=== PATIENT | female | born 1960 | race American Indian/Alaskan Native ===

== ENCOUNTER 2017-09-17 17:00 | Emergency (ER) | payer SELFPAY ==
[2017-09-17 18:14] LABS: Hemoglobin 13.1 gm/dl (10.1-14.3); Mean Corpuscular HGB Conc 34 % (30-34); Mean Corpuscular Hemoglobin 32 pg (28-32); Mean Corpuscular Volume 96 fl (79-97); Platelet Count 225 K/mm3 (140-440); Red Blood Count 4.04 M/mm3 (3.65-5.03); Red Cell Distribution Width 14.3 % (13.2-15.2)
[2017-09-17 18:41] LABS: Alanine Aminotransferase 10 units/L (7-56); Albumin 4.2 g/dL (3.9-5); BUN/Creatinine Ratio 14; Blood Urea Nitrogen 7 mg/dL (7-17); Hemolysis Index 4
--- NOTE | 2017-09-17 19:48 | Cat Scan Report ---
FINAL REPORT EXAM: CT HEAD/BRAIN WO CON HISTORY: htn/severe h/a's and dizziness TECHNIQUE: 2.5 millimeter axial images from the skullbase to the vertex. Comparison: None FINDINGS: There is no CT evidence of an acute intracranial process and no evidence of intracranial hemorrhage or mass effect. The ventricles are normal size. There is atherosclerotic vascular calcification of the internal carotid arteries bilaterally and left vertebral artery at the skullbase. The sella is enlarged and appears to be CSF filled consistent with the appearance of an "empty sella". The visualized portions of the orbits, paranasal and mastoid sinuses are unremarkable. The bony structures are unremarkable in appearance. IMPRESSION: 1. No CT evidence of an acute intracranial process and no evidence of intracranial hemorrhage or mass effect. If there is a clinical suspicion of an acute intracranial process, MRI brain may be helpful. 2. Atherosclerotic vascular calcification internal carotid arteries bilaterally and left vertebral artery at the skullbase. 3. Incidental note is made of the appearance of an "empty sella".
[2017-09-17] MEDS ORDERED: MOTRIN PO ONE (23:10)
[2017-09-17] MEDS ORDERED: TYLENOL PO ONE (23:10)
[2017-09-17] MEDS ORDERED: NORVASC PO ONE (23:11)
[2017-09-17] MEDS ORDERED: COMPAZINE IV ONE (23:24)
[2017-09-17] MEDS ORDERED: TORADOL IV ONE (23:24)
[2017-09-17] MEDS ORDERED: NACL 0.9% 1000 ML 1,000 ML IV ONE (23:24)
--- NOTE | 2017-09-18 00:48 | Emergency Department Report ---
ED General Adult HPI - General Chief complaint: High BP Stated complaint: HBP/PAIN Time Seen by Provider: 09/17/17 23:10 Source: patient Mode of arrival: Ambulatory Limitations: No Limitations - History of Present Illness Severity scale (0 -10): 10 - Related Data Previous Rx's Medication Instructions Recorded Last Taken Type amLODIPine [Norvasc] 5 mg PO DAILY #30 tab 09/18/17 Unknown Rx Allergies Allergy/AdvReac Type Severity Reaction Status Date / Time No Known Allergies Allergy Verified 09/17/17 23:26 ED Review of Systems ROS: Stated complaint: HBP/PAIN Other details as noted in HPI ED Past Medical Hx - Past Medical History Previous Medical History?: No - Surgical History Past Surgical History?: No - Social History Smoking Status: Never Smoker Substance Use Type: None - Medications Home Medications: Home Medications Medication Instructions Recorded Confirmed Last Taken Type amLODIPine [Norvasc] 5 mg PO DAILY #30 tab 09/18/17 Unknown Rx ED Physical Exam - General Limitations: No Limitations ED Course Vital Signs 09/17/17 09/17/17 09/18/17 17:44 20:54 00:55 Temperature 99 F 100.3 F H Pulse Rate 103 H 93 H 90 Respiratory 20 18 Rate Blood Pressure 218/108 183/93 201/107 O2 Sat by Pulse 99 96 Oximetry ED Medical Decision Making - Lab Data Result diagrams: 09/17/17 18:02 09/17/17 18:02 - Radiology Data Radiology results: report reviewed, image reviewed - Medical Decision Making 57 yo female with no sig pmhx that p/w HTN and H/a. VS significant for BP of 210/108. NO focal neuro symptoms. CT Head/angio shows no acute pathology. Pt was given a h/a cocktail and amlodipine. Moroni improved on re-evaluation. Pt developed a low grade temp of 100.3 while in the ER. Pt is showing no evidence of meningismus. It is unclear at this time, the source of her temperature. She will be discharged with amlodipine and pcp f/u. - Differential Diagnosis ICH, hTN urgency, bening hypertension, acs, cva Critical care attestation.: If time is entered above; I have spent that time in minutes in the direct care of this critically ill patient, excluding procedure time. ED Disposition Clinical Impression: Hypertension, Headache Disposition: DC- TO HOME OR SELFCARE Is pt being admited?: No Does the pt Need Aspirin: No Condition: Stable Instructions: Hypertension (ED) Additional Instructions: Take your blood pressure meds as prescribed. Follow up with the [facility] for further management of your hypertension. Prescriptions: amLODIPine [Norvasc] 5 mg PO DAILY #30 tab Referrals: PRIMARY CARE, [Primary Care Provider] - 3-5 Days [facility] [Outside] - 3-5 Days
--- NOTE | 2017-09-18 01:34 | Cat Scan Report ---
FINAL REPORT EXAM: CT ANGIO HEAD HISTORY: sudden onset h/a COMPARISON: CT of the head from yesterday. TECHNIQUE: Contiguous axial images were obtained. Additional sagittal and coronal reformatted images were obtained. Administration of IV contrast given per institution protocol. Images submitted for interpretation. 100 cc Omnipaque 350. Max intensity projection images. FINDINGS: Mild calcified plaque along the cavernous and supraclinoid portions of the internal carotid arteries. No significant associated stenosis. Petrous segments are widely patent. A1 segments are symmetric in caliber. There is a tiny anterior communicating artery. Symmetric opacification of branching of the anterior, middle, posterior cerebral arteries. Tiny left posterior communicating artery is present. Intracranial portions the vertebral arteries and basilar artery patent. Mild focal calcified plaque along the proximal left vertebral artery without significant associated stenosis. No early draining vein. No area of abnormal hypervascular enhancement. Gross normal opacification major dural venous sinuses. Limited evaluation of brain parenchyma due to CT angiography algorithm. No large area of infarct or intracranial hemorrhage. IMPRESSION: Mild calcified plaque within the left vertebral artery and carotid siphons. No significant associated stenosis. Otherwise, negative CTA of the head.
[2017-09-18 03:20] VITALS: BP 189/99
== END 2017-09-18 02:40 | disposition home or self-care (01) ==
LOC: ED 17:00
DX: I10 Essential (primary) hypertension (principal)
CPT/HCPCS: 36415; 70450; 70496; 80053; 85027; 96374; 96375; 99284; J0780; J1885; J7030; Q9967

== ENCOUNTER 2019-04-12 21:16 | Emergency (ER) | payer SELFPAY ==
--- NOTE | 2019-04-12 21:27 | Event Note ---
ED Screening Note Date of service: 04/12/19 Time: 21:26 ED Screening Note: Pt complains of lower abdominal pain x 1 month worsens with eating denies hx of abdominal surgeries states abnormal vaginal bleeding This initial assessment/diagnostic orders/clinical plan/treatment(s) is/are subject to change based on patients health status, clinical progression and re- assessment by fellow clinical providers in the ED. Further treatment and workup at subsequent clinical providers discretion. Patient/guardian urged not to elope from the ED as their condition may be serious if not clinically assessed and managed. Initial orders include: labs US
[2019-04-12 22:06] LABS: Basophils # (Auto) 0.1 K/mm3 (0.0-0.1); Basophils % (Auto) 0.8 % (0.0-1.8); Eosinophils % (Auto) 0.4 % (0.0-4.3); Hematocrit 32.6 % (30.3-42.9); Hemoglobin 10.5 gm/dl (10.1-14.3); Lymphocytes # (Auto) 1.5 K/mm3 (1.2-5.4); Lymphocytes % (Auto) 20.3 % (13.4-35.0); Mean Corpuscular HGB Conc 32 % (30-34); Mean Corpuscular Volume 86 fl (79-97); Monocytes # (Auto) 0.8 K/mm3 (0.0-0.8); Monocytes % (Auto) 11.5 % (0.0-7.3); Platelet Count 453 K/mm3 (140-440); Red Blood Count 3.78 M/mm3 (3.65-5.03); Red Cell Distribution Width 16.6 % (13.2-15.2)
[2019-04-12 22:20] LABS: BUN/Creatinine Ratio 16; Blood Urea Nitrogen 11 mg/dL (7-17); Calcium 8.9 mg/dL (8.4-10.2); Hemolysis Index 4
[2019-04-12 22:23] LABS: Alanine Aminotransferase 10 units/L (7-56); Albumin 3.6 g/dL (3.9-5)
[2019-04-12 22:24] LABS: Bilirubin,Direct < 0.2 mg/dL (0-0.2)
--- NOTE | 2019-04-12 22:54 | Emergency Department Report ---
ED Abdominal Pain HPI - General Chief Complaint: Abdominal Pain Stated Complaint: ABD PAIN/WEAKNESS Time Seen by Provider: 04/12/19 21:25 Source: patient Mode of arrival: Ambulatory Limitations: No Limitations - History of Present Illness Initial Comments: Patient is a 58-year-old female presents emergency room with complaints of lower abdominal pain that began a month ago. She has associated decreased appetite and vaginal spotting for the last month. She states she had a normal bowel movement yesterday. She denies any nausea, vomiting, diarrhea, hematochezia, melena, urinary symptoms. She states that she has had a history of fibroids in the past. She has a past medical history of hypertension but did not take her medication today. She denies any allergies to medications. - Related Data Previous Rx's Medication Instructions Recorded Last Taken Type amLODIPine 5 mg PO DAILY #30 tab 09/18/17 Unknown Rx Oxycodone HCl/Acetaminophen 1 each PO Q6HR PRN #12 tablet 04/13/19 Unknown Rx [Percocet 7.5/325 mg] Allergies Allergy/AdvReac Type Severity Reaction Status Date / Time No Known Allergies Allergy Verified 09/17/17 23:26 ED Review of Systems ROS: Stated complaint: ABD PAIN/WEAKNESS Other details as noted in HPI Comment: All other systems reviewed and negative ED Past Medical Hx - Past Medical History Previous Medical History?: Yes Hx Hypertension: Yes Additional medical history: obesity - Surgical History Past Surgical History?: No - Social History Smoking Status: Never Smoker Substance Use Type: None - Medications Home Medications: Home Medications Medication Instructions Recorded Confirmed Last Taken Type amLODIPine 5 mg PO DAILY #30 tab 09/18/17 Unknown Rx Oxycodone HCl/Acetaminophen 1 each PO Q6HR PRN #12 tablet 04/13/19 Unknown Rx [Percocet 7.5/325 mg] ED Physical Exam - General Limitations: No Limitations General appearance: alert, in no apparent distress - Head Head exam: Present: atraumatic, normocephalic - Eye Eye exam: Present: normal appearance - ENT ENT exam: Present: mucous membranes moist - Respiratory Respiratory exam: Present: normal lung sounds bilaterally. Absent: respiratory distress, wheezes, rales, rhonchi, stridor, chest wall tenderness, accessory muscle use, decreased breath sounds, prolonged expiratory - Cardiovascular Cardiovascular Exam: Present: regular rate, normal rhythm, normal heart sounds. Absent: systolic murmur, diastolic murmur, rubs, gallop - GI/Abdominal GI/Abdominal exam: Present: soft, tenderness (lower), normal bowel sounds, other (protuberant abdomen). Absent: distended, guarding, rebound, rigid - Neurological Exam Neurological exam: Present: alert, oriented X3 - Psychiatric Psychiatric exam: Present: normal affect, normal mood - Skin Skin exam: Present: warm, dry, intact ED Course Vital Signs 04/12/19 04/13/19 21:20 00:54 Temperature 99.2 F Pulse Rate 95 H 96 H Respiratory 18 18 Rate Blood Pressure 173/84 165/76 O2 Sat by Pulse 100 97 Oximetry - Consultations Consultation #1: 04/13/19 00:[address] Sam, FOOD PREPARER regarding pt and imaging studies who recommended outpatient WE[facility] MANAGEMENT ADVISOR referral, no further recommendations at this time ED Medical Decision Making - Lab Data Result diagrams: 04/12/19 21:42 04/12/19 21:42 - Radiology Data Radiology results: report reviewed CT of the abdomen and pelvis with contrast INDICATION: Lower abdominal pain COMPARISON: None FINDINGS: There are multiple basilar lung nodule suspicious for metastases measuring up to 11 mm in diameter. There is minimal right pleural effusion seen as well. There is moderate ascites in the upper abdomen. The liver is normal with no metastatic disease seen. Spleen is normal in attenuation and not enlarged. The pancreas, adrenal glands and right kidney all appear norm al. Low densities in the left kidney are likely cysts. No definite gallbladder or biliary tree abn ormality. No gastric mass is seen. There is a small hiatal hernia. There is moderate retroperitoneal adenopathy in the upper abdomen. There is no definite carcinomatosis. CT of the pelvis shows no evidence of bowel obstruction. Multiple uterine fibroids are seen with the uterus enlarged. There is a large fluid-filled endometrial cavity is seen as well. There are no definite adnexal masses. There is moderate pelvic and inguinal adenopathy seen as well. There is minimal pelvic ascites. No skeletal metastases are seen. There is generalized anasarca of moderate severity. IMPRESSION: Multiple pulmonary nodules with abdominal and pelvic adenopathy as well as abnormal appearing uterus. Findings suggest neoplasm. No acute inflammatory process seen. Automated exposure control was utilized to diminish radiation dose. Signer Name: Robert Talbot MD Signed: 04/13/2019 12:08 AM Workstation Name: [id number] Transcribed By: LAILA Dictated By: Robert Talbot MD Electronically Authenticated By: Robert Talbot MD Signed Date/Time: 04/13/19 0008 DD/ 0001 TD/TT: Transabdominal pelvic ultrasound INDICATION: Vaginal bleeding FINDINGS: Neither ovary is seen. Uterus measures 16 x 11 x 12 cm.. In the anterior fundal uterus there is a partially calcified 6 x 7 cm fibroid. Endometrial stripe is significantly thickened at 6 cm and presumably this represents clot. There is no vascularity in this region. No free fluid is seen. IMPRESSION: 1. Large amount of endometrial cavity clot. 2. The ovaries are not seen. 3. Uterine fibroid. Signer Name: Robert Talbot MD Signed: 04/12/2019 10:58 PM Workstation Name: [id number] Transcribed By: LAILA Dictated By: Robert Talbot MD Electronically Authenticated By: Robert Talbot MD Signed Date/Time: 04/12/192257 DD/ 55 TD/TT: - Medical Decision Making Patient is a 58-year-old female presents emergency room with complaints of lower abdominal pain that began a month ago. She has associated decreased appetite and vaginal spotting for the last month. She states she had a normal bowel movement yesterday. She denies any nausea, vomiting, diarrhea, hematochezia, melena, urinary symptoms. She states that she has had a history of fibroids in the past. She has a past medical history of hypertension but did not take her medication today. She denies any allergies to medications. Vitals with mildly elevated blood pressure secondary to patient not taking her medication. On exam lower abdominal tenderness to palpation, no guarding, no rebound, normal bowel sounds. Labs are stable. H&H is normal. UA without evidence of UTI. pelvic US: 1. Large amount of endometrial cavity clot. 2. The ovaries are not seen. 3. Uterine fibroid. CT abd pelvis with IV contrast: Multiple pulmonary nodules with abdominal and pelvic adenopathy as well as abnormal appearing uterus. Findings suggest neoplasm. No acute inflammatory process seen. spoke to Dr. Sam, FOOD PREPARER regarding pt and imaging studies who recommended outpatient WEALTH MANAGEMENT ADVISOR referral, no further recommendations at this time. Discussed all results with the patient and answered questions. Discussed the importance of follow-up with the patient and the severity if she did not. Patient given prescription for oxycodone. advised pt Please take medication as prescribed as needed. Do not drive or operate heavy machinery while taking pain medication. Please take your CT report to an FOOD PREPARER. It is very important that you follow-up with FOOD PREPARER. Return to the emergency room immediately for any new or worsening symptoms. - Differential Diagnosis fibroids, uterine CA, constipation, UTI, colitis, diverticulitis, mass Critical care attestation.: If time is entered above; I have spent that time in minutes in the direct care of this critically ill patient, excluding procedure time. ED Disposition Clinical Impression: Vaginal bleeding, Decreased appetite, Abnormal ultrasound of uterus, Lymphadenopathy, Pulmonary nodules Abdominal pain Qualifiers: Abdominal location: lower abdomen, unspecified Qualified Code(s): R10.30 - Lower abdominal pain, unspecified Disposition: TO HOME OR SELFCARE Is pt being admited?: No Does the pt Need Aspirin: No Condition: Stable Instructions: Abdominal Pain (ED) Additional Instructions: Please take medication as prescribed as needed. Do not drive or operate heavy machinery while taking pain medication. Please take your CT report to an FOOD PREPARER. It is very important that you follow-up with FOOD PREPARER. Return to the emergency room immediately for any new or worsening symptoms. Prescriptions: Oxycodone HCl/Acetaminophen [Percocet 7.5/325 mg] 1 each PO Q6HR PRN #12 tablet PRN Reason: Pain , Severe (7-10) Referrals: [facility] [Provider Group] - 2-3 Days [facility] [Provider Group] - 2-3 Days [facility] [Provider Group] - 2-3 Days ARNALDO NAIR MD [Referring] - 2-3 Days Time of Disposition: 00:40 Print Language: GERMAN
--- NOTE | 2019-04-12 23:02 | Ultrasound Report ---
Transabdominal pelvic ultrasound INDICATION: Vaginal bleeding FINDINGS: Neither ovary is seen. Uterus measures 16 x 11 x 12 cm.. In the anterior fundal uterus ther e is a partially calcified 6 x 7 cm fibroid. Endometrial stripe is significantly thickened at 6 cm an d presumably this represents clot. There is no vascularity in this region. No free fluid is seen. IMPRESSION: 1. Large amount of endometrial cavity clot. 2. The ovaries are not seen. 3. Uterine fibroid. Signer Name: Robert Talbot MD Signed: 04/12/2019 10:58 PM Workstation Name: [id number]
[2019-04-13 00:07] LABS: Bacteria,Urine 1+ /HPF (Negative); Mucus,Urine 2+ /HPF
--- NOTE | 2019-04-13 00:12 | Cat Scan Report ---
CT of the abdomen and pelvis with contrast INDICATION: Lower abdominal pain COMPARISON: None FINDINGS: There are multiple basilar lung nodule suspicious for metastases measuring up to 11 mm in d iameter. There is minimal right pleural effusion seen as well. There is moderate ascites in the upper abdomen. The liver is normal with no metastatic disease seen. Spleen is normal in attenuation and no t enlarged. The pancreas, adrenal glands and right kidney all appear normal. Low densities in the lef t kidney are likely cysts. No definite gallbladder or biliary tree abnormality. No gastric mass is se en. There is a small hiatal hernia. There is moderate retroperitoneal adenopathy in the upper abdomen . There is no definite carcinomatosis. CT of the pelvis shows no evidence of bowel obstruction. Multiple uterine fibroids are seen with the uterus enlarged. There is a large fluid-filled endometrial cavity is seen as well. There are no defin ite adnexal masses. There is moderate pelvic and inguinal adenopathy seen as well. There is minimal p elvic ascites. No skeletal metastases are seen. There is generalized anasarca of moderate severity. IMPRESSION: Multiple pulmonary nodules with abdominal and pelvic adenopathy as well as abnormal appea ring uterus. Findings suggest neoplasm. No acute inflammatory process seen. Automated exposure control was utilized to diminish radiation dose. Signer Name: Robert Talbot MD Signed: 04/13/2019 12:08 AM Workstation Name: [id number]
[2019-04-13 00:37] LABS: Bilirubin,Urine NEG (Negative); Blood,Urine NEG (Negative); Color,Urine Yellow (Yellow)
[2019-04-13 00:56] VITALS: BP 165/76
== END 2019-04-13 01:17 | disposition home or self-care (01) ==
LOC: ED 21:16
DX: N93.9 Abnormal uterine and vaginal bleeding, unspecified (principal); R91.1 Solitary pulmonary nodule; R59.1 Generalized enlarged lymph nodes; R93.5 Abnormal findings on diagnostic imaging of other abdominal regions, including retroperitoneum; R63.0 Anorexia; R10.30 Lower abdominal pain, unspecified; I10 Essential (primary) hypertension; E66.9 Obesity, unspecified; Z68.43 Body mass index [BMI] 50.0-59.9, adult; Z79.899 Other long term (current) drug therapy
CPT/HCPCS: 36415; 74177; 76856; 80048; 80076; 81001; 85025; 99284; Q9967